=== PATIENT | female | born 1985 | race Caucasian/White ===

== ENCOUNTER 2016-10-25 04:16 | Emergency (ER) | payer SELFPAY ==
[2016-10-25] MEDS ORDERED: KETOROLAC 30 MG/ML VIAL ONE (05:38)
[2016-10-25] MEDS ORDERED: ONDANSETRON 4 MG VIAL ONE (05:38)
[2016-10-25] MEDS ORDERED: SODIUM CHLORIDE 0.9% 50 ML IV ONE (06:17)
[2016-10-25] MEDS ORDERED: PROMETHAZINE 25 MG/ML VIAL ONE (06:17)
[2016-10-25] MEDS ORDERED: DILAUDID 1 MG/ML AMP ONE (06:17)
== END 2016-10-25 07:54 | disposition home or self-care (01) ==
LOC: ER 04:16
DX: N39.0 Urinary tract infection, site not specified (principal); N83.11 Corpus luteum cyst of right ovary; N76.0 Acute vaginitis; F17.210 Nicotine dependence, cigarettes, uncomplicated
CPT/HCPCS: 36415; 76830; 80053; 81001; 83690; 84702; 84703; 85025; 87088; 87491; 87591; 87800; 96365; 96375